=== PATIENT | female | born 1965 | race Caucasian/White ===

== ENCOUNTER → 2018-09-16 | Outpatient (CLI) | payer BC ==
--- NOTE | 2018-09-18 09:15 | REP ---
MRI LUMBAR SPINE WITHOUT CONTRAST: HISTORY: Disc degeneration. Back pain 2 months post injury. Numbness in the right leg. No comparison imaging available. TECHNIQUE: Sagittal and axial T1 and T2-weighted scans are acquired in the usual fashion with and without fat saturation. Sequences include spin echo, turbo spin-echo, and STIR imaging sequences. MRI FINDINGS: There is straightening of the normal lumbar lordosis. Lumbar vertebral body heights are preserved. No extraspinal abnormality is observed. Axial and sagittal images taken at T12-L1 show no significant abnormality. At L1-L2, there is a mild left lateral disc bulge. No central canal stenosis or neural foraminal narrowing. At L2-3, there is mild central canal stenosis due to developmentally small canal. Dorsal epidural fat and bilateral facet hypertrophy participate in this. There is minimal disc bulging at L2-3. The AP dimension of the thecal sac in midline at the L2-3 disc level is 8 mm. No neural foraminal narrowing. At L3-4, there is advanced degenerative disc disease with reactive marrow change on either side of the disc. There is a somewhat angular right paracentral focal disc protrusion superimposed on a diffuse disc bulging. This produces moderate to severe central canal stenosis. AP dimension of the thecal sac at the level of the disc is only 3.4 mm. There is no neural foraminal narrowing. Facet hypertrophy is present bilaterally at L3-4. This is mild. At L4-5, there is mild to moderate central canal stenosis. Diffuse disc bulging is present. Mild bilateral neural foraminal narrowing is noted due to disc bulging and facet hypertrophy. Canal size is borderline. AP dimension of the thecal sac is 9 mm. At L5-S1, there is no significant abnormality. There is sacralization of the L5 transverse processes bilaterally. IMPRESSION: Multilevel central canal stenosis, moderate to severe at L3-4 where it is complicated by an angular right paracentral disc protrusion. Electronically Signed by Flaquito Tran MD 09/18/2018 10:26 A
== END ==
LOC: M RAD 14:38
PROVIDERS: ATTEND Nurse Practitioner Family
DX: M51.36 Other intervertebral disc degeneration, lumbar region (principal); M51.26 Other intervertebral disc displacement, lumbar region; M48.061 Spinal stenosis, lumbar region without neurogenic claudication

== ENCOUNTER → 2021-10-02 | Outpatient (CLI) | payer BC ==
[~2021-10-02] MED LIST: GASTROGRAFIN SOLUTION 30ML (Q9963) ONE; ISOVUE-370 76% 100ML VIAL ONE
== END ==
LOC: M PLAIMG 09:19
PROVIDERS: ATTEND Surgery
DX: K43.0 Incisional hernia with obstruction, without gangrene (principal)
CPT/HCPCS: 74177; Q9963; Q9967

== ENCOUNTER → 2021-10-29 | Outpatient (CLI) | payer BC ==
[~2021-10-29] MED LIST changes: -GASTROGRAFIN SOLUTION 30ML (Q9963) ONE; -ISOVUE-370 76% 100ML VIAL ONE; +MELO15TA28 PO; +SYNT50TA PO
== END ==
LOC: M LABSMTC 09:15
PROVIDERS: ATTEND Anesthesiology
DX: Z01.812 Encounter for preprocedural laboratory examination (principal); Z20.822 Contact with and (suspected) exposure to COVID-19

== ENCOUNTER 2021-11-03 12:45 | Day surgery (SDC) | payer BC ==
[~2021-11-03] VITALS: Ht 177.8 cm; Wt 117.9 kg
[2021-11-03] MEDS ORDERED: HYDR-3715 PO (15:57)
[2021-11-03] MEDS ORDERED: BUPIVACAINE HCL 0.25% 30ML VIAL As Ordered ONE (18:51)
[2021-11-03] MEDS ORDERED: SUGAMMADEX SODIUM 500 MG/5 ML VIAL (BRIDION) As Ordered ONE (19:20)
[2021-11-03] MEDS ORDERED: dexameTHASONE 4 MG/ML 1ML VIAL (J1100 PER 1MG) As Ordered ONE (19:20)
[2021-11-03] MEDS ORDERED: MIDAZOLAM INJ 2MG/2ML VIAL (J2250 PER 1MG) As Ordered ONE (19:20)
[2021-11-03] MEDS ORDERED: propofoL 200 MG/20 ML VIAL As Ordered ONE (19:20)
[2021-11-03] MEDS ORDERED: fentaNYL 250 MCG/5 ML INJECTION As Ordered ONE (19:20)
[2021-11-03] MEDS ORDERED: ONDANSETRON 4MG 2ML VIAL As Ordered ONE (19:20)
[2021-11-03] MEDS ORDERED: ACETAMINOPHEN 1000MG 100ML IV BTL (OFIRMEV) (J0131 PER 10MG) As Ordered ONE (19:20)
[2021-11-03] MEDS ORDERED: LIDOCAINE 2% 100MG/5ML SDV (FOR ANES.) As Ordered ONE (19:20)
[2021-11-03] MEDS ORDERED: ROCURONIUM BROMIDE 50 MG/5 ML VIAL As Ordered ONE ×2 (19:20→20:35)
[2021-11-03] MEDS ORDERED: KETOROLAC 60MG 2ML VIAL As Ordered ONE (19:20)
[2021-11-03] MEDS ORDERED: LABETALOL 100MG/20ML VIAL As Ordered ONE (20:06)
[2021-11-03] MEDS ORDERED: HYDROMORPHONE HCL 0.5 MG/ 0.5 ML SYRINGE (J1170 PER 1) IV PRN (21:50)
[2021-11-03] MEDS ORDERED: ONDANSETRON 4MG 2ML VIAL IV PRN (21:50)
[2021-11-03] MEDS ORDERED: fentaNYL 100 MCG/2 ML INJECTION IV PRN (21:50)
[2021-11-03] MEDS ORDERED: LR 1,000 ML IV SCH (21:50)
[2021-11-03] MEDS ORDERED: oxyCODONE 5MG TAB PO PRN (21:50)
[2021-11-03 22:45] VITALS: BP 121/72
[2021-11-03] MEDS ORDERED: NORCO, ANEXSIA 5/325MG TABLET (HYDROcodone/ACETAMINOPHEN) PO PRN (23:35)
[2021-11-03] MEDS ORDERED: ACETAMINOPHEN TAB 650MG DOSE (2X325MG) PO PRN (23:35)
== END 2021-11-03 23:10 | disposition home or self-care (01) ==
LOC: M SDC 12:45
PROVIDERS: ATTEND Surgery
DX: K43.2 Incisional hernia without obstruction or gangrene (principal); J44.9 Chronic obstructive pulmonary disease, unspecified; K21.9 Gastro-esophageal reflux disease without esophagitis; E03.9 Hypothyroidism, unspecified; Z79.899 Other long term (current) drug therapy; E66.01 Morbid (severe) obesity due to excess calories; F17.210 Nicotine dependence, cigarettes, uncomplicated
CPT/HCPCS: 49652; 81025; C1781; J0131; J1100; J1885; J2250; J2405; J3010; S2900

== ENCOUNTER → 2023-04-07 | Outpatient (CLI) | payer BC ==
[~2023-04-07] MED LIST changes: +HYDR-3715 PO
== END ==
LOC: M PLARAD 10:54
PROVIDERS: ATTEND Physician Assistant Medical
DX: M54.9 Dorsalgia, unspecified (principal); M51.36 Other intervertebral disc degeneration, lumbar region; M48.00 Spinal stenosis, site unspecified